=== PATIENT | male | born 1940 | race American Indian/Alaskan Native ===

== ENCOUNTER 2018-05-11 08:07 | Day surgery (SDC) | payer MEDICARE ==
[2018-04-29 09:52] VITALS: BMI 31.5
[2018-05-11] MEDS ORDERED: Etomidate 20 mg/10ml Inj IV ONE (10:22)
[2018-05-11] MEDS ORDERED: Midazolam 2 MG/2 ML VIAL ONE (10:22)
[2018-05-11] MEDS ORDERED: Absorbable Gelatin Sponge Size 12-7 ONE (10:25)
--- NOTE | 2018-05-11 10:36 | PCM.SURG1 ---
Surgeon's Initial Post Op Note - Surgeon's Notes Surgeon: Stevie Spence MD Boiler/Chiller Operator: NONE Type of Anesthesia: IV Sedation Pre-Operative Diagnosis: Renal failure Operative Findings: US showed slightly echogenic kidneys. Post-Operative Diagnosis: Renal failure Operation Performed: US guided right renal biopsy. Five 18 gauge core specimen removed from right renal lower pole. Biopsy tract embolized with gelfoam. There were no immediate complications. Specimen/Specimens Removed: 18 gauge core x 5 Estimated Blood Loss: EBL {In ML}: 3 Blood Products Given: N/A Drains Used: No Drains Post-Op Condition: Good Date of Surgery/Procedure: 05/11/18 Time of Surgery/Procedure: 10:30
--- NOTE | 2018-05-11 10:37 | CP.SDSHP ---
Same Day Surgery H & P - History Proposed Procedure: US guided renal biopsy Pre-Op Diagnosis: Renal failure - Allergies Allergies: Allergies No Known Allergies Allergy (Verified 04/12/15 12:10) - Physical Exam Vital Signs: Vital Signs 05/11/18 08:30 Temperature 97.6 F Pulse Rate 88 Respiratory 20 Rate Blood Pressure 163/82 H O2 Sat by Pulse 97 Oximetry Mental Status: Alert & Oriented x3 Neuro: WNL Heart: WNL Lungs: WNL - Impression Impression: Pt with renal failure refered for percutaneous biopsy. Informed consent and risk of bleeding discussed with pt. Plan US guided renal biopsy. Pt. Evaluated Today:Candidate for Anesthesia & Procedure: Yes (ASA 3 Malampati 3) - Date & Time Date: 05/11/18 Time: 10:15 Short Stay Discharge - Short Stay Discharge Admitting Diagnosis/Reason for Visit: CHRONIC KIDNEY DISEASE, STAGE 3 (MODERATE) /PROTEIN Disposition: HOME/ ROUTINE
[2018-05-11 13:07] VITALS: BP 117/65; PULSE 87; RESP 20; TEMP 98; O2SAT 98
--- NOTE | 2018-05-16 10:33 | US ---
PROCEDURE: Date of procedure: 05/11/2018 Procedure: Ultrasound-guided right renal biopsy, CPT 03306 Ultrasound guidance for biopsy, [address] Medication: 8 cc 2% Lidocaine, patient received IV sedation by the anesthesiologist along with physiologic monitoring. HISTORY: Renal insufficiency TECHNIQUE: Following informed consent and procedure time-out, the patient was placed prone on the interventional table and a limited ultrasound showed unremarkable right kidney There is no hydronephrosis or mass. The patient right back was prepped and draped in the usual sterile fashion. After patient sedated by the anesthesiologist and the skin anesthetized with lidocaine, an 18 gauge core needle was advanced percutaneously towards the lower pole cortex. Upon confirmation of needle position, three-18 gauge core specimens were obtained and sent for routine pathology. The biopsy tract was then embolized with Gelfoam. A post biopsy ultrasound showed no hematoma. There were no immediate complications. IMPRESSION: Ultrasound-guided right renal biopsy.
== END 2018-05-11 12:45 | disposition home or self-care (01) ==
LOC: C.SPRAD 08:07
PROVIDERS: ATTEND Radiology Vascular & Interventional Radiology
DX: E11.22 Type 2 diabetes mellitus with diabetic chronic kidney disease (principal); N18.3 Chronic kidney disease, stage 3 (moderate); E11.21 Type 2 diabetes mellitus with diabetic nephropathy
CPT/HCPCS: 50200; 76942; 82948; 88305; J2250

== ENCOUNTER 2019-03-27 06:36 | Day surgery (SDC) | payer MEDICARE ==
[2019-03-27 07:03] VITALS: BMI 30.8
[2019-03-27] MEDS ORDERED: Lactated Ringer's 500 ML IV ONE ×2 (08:30)
--- NOTE | 2019-03-27 08:34 | CP.SDSHP ---
Same Day Surgery H & P - History Proposed Procedure: Colonoscopy Pre-Op Diagnosis: Personal history of colon polyps - Previous Medical/Surgical History Cardiac: Hypertension, Arrhythmia Endocrine/Metabolic: Diabetes Misc: Other Comments: BPH Previous Surgical History: Cardiac ablation, bilateral total hip replacement, defibrillator, appendectomy - Allergies Allergies: Allergies No Known Allergies Allergy (Verified 03/27/19 07:01) - Current Medications Current Medications: See reconciliation sheet - Physical Exam General Appearance: WD WN male in NAD Vital Signs: Vital Signs 03/27/19 06:45 Temperature 98.7 F Pulse Rate 83 Respiratory 16 Rate Blood Pressure 140/74 O2 Sat by Pulse 98 Oximetry Mental Status: Alert & Oriented x3 Neuro: WNL Heart: WNL Lungs: WNL - {Optional Preform as Required} Abdomen: WNL - Impression Impression: Personal history of colon polyps Pt. Evaluated Today:Candidate for Anesthesia & Procedure: Yes - Date & Time Date: 03/27/19 Time: 08:34 Short Stay Discharge - Short Stay Discharge Admitting Diagnosis/Reason for Visit: P/H COLON POLYPS Disposition: HOME/ ROUTINE
[2019-03-27] MEDS ORDERED: Propofol 10 mg/ml Inj (20 ML) ONE (08:46)
[2019-03-27] MEDS ORDERED: Etomidate 20 mg/10ml Inj IV ONE (09:28)
[2019-03-27 09:49] VITALS: RESP 20; TEMP 97.8
[2019-03-27] MEDS ORDERED: Lactated Ringer's 1,000 ML IV ONE (09:55)
[2019-03-27 10:40] VITALS: BP 150/78; PULSE 85; O2SAT 98
== END 2019-03-27 10:30 | disposition home or self-care (01) ==
LOC: C.ENDO 06:36
PROVIDERS: ATTEND Internal Medicine Gastroenterology
DX: D12.6 Benign neoplasm of colon, unspecified (principal); K63.5 Polyp of colon; E11.9 Type 2 diabetes mellitus without complications; Z79.4 Long term (current) use of insulin
CPT/HCPCS: 45385; 82948; 88305; J2704; J3010; J7120